=== PATIENT | female | born 1990 | race Caucasian/White ===

== ENCOUNTER → 2019-12-23 | Outpatient (CLI) | payer SELFPAY | LOC: MHCPAIN 11:02 | DX: M47.817 Spondylosis without myelopathy or radiculopathy, lumbosacral region (principal); M54.5 Low back pain; M53.3 Sacrococcygeal disorders, not elsewhere classified; G89.29 Other chronic pain | CPT/HCPCS: G0463 ==

== ENCOUNTER → 2020-01-23 | Outpatient (CLI) | payer SELFPAY | LOC: MHCPAIN 12:57 | DX: M47.817 Spondylosis without myelopathy or radiculopathy, lumbosacral region (principal); M53.3 Sacrococcygeal disorders, not elsewhere classified; M54.5 Low back pain; G89.29 Other chronic pain | CPT/HCPCS: G0463 ==

== ENCOUNTER → 2020-03-23 | Outpatient (CLI) | payer SELFPAY | LOC: MHCPAIN 11:59 | DX: M47.817 Spondylosis without myelopathy or radiculopathy, lumbosacral region (principal); M54.5 Low back pain; M53.3 Sacrococcygeal disorders, not elsewhere classified; G89.29 Other chronic pain | CPT/HCPCS: G0463; J2250; J2405; J3010 ==